=== PATIENT | female | born 1995 | race Hispanic/Latino ===

== ENCOUNTER 2016-12-29 05:06 | Inpatient (IN) ==
[2016-12-29 05:50] LABS: URINE SOURCE VOIDED
[2016-12-29 06:00] LABS: UR AMPHETAMINES QUAL NONE DETECTED (NONE DETECT); UR BARBITUATES QUAL NONE DETECTED (NONE DETECT); UR BENZODIAZEPIN QUAL NONE DETECTED (NONE DETECT); UR CANNABINOIDS QUAL NONE DETECTED (NONE DETECT); UR COCAINE QUAL NONE DETECTED (NONE DETECT); UR MDMA QUAL NONE DETECTED (NONE DETECT); UR METHADONE QUAL NONE DETECTED (NONE DETECT); UR METHAMPHETAMINE QUAL NONE DETECTED (NONE DETECT); UR OPIATES QUAL NONE DETECTED (NONE DETECT); UR OXYCODONE QUAL NONE DETECTED (NONE DETECT); UR PCP QUAL NONE DETECTED (NONE DETECT); UR TCA QUAL NONE DETECTED (NONE DETECT)
[2016-12-29 06:13] LABS: BILIRUBIN URINE NEGATIVE (NEGATIVE); BLOOD URINE 4+ (NEGATIVE); CLARITY SL. CLOUDY (CLEAR); GLUCOSE URINE NEGATIVE (NEGATIVE); LEUKOCYTES URINE 2+ (NEGATIVE); NITRITE URINE NEGATIVE (NEGATIVE); PROTEIN URINE TRACE mg/dL (NEGATIVE); SP GRAVITY URINE 1.005; UROBILINOGEN URINE NORMAL
[2016-12-29 06:20] LABS: COLOR PINK
[2016-12-29] MEDS: LR 1,000 ML IV SCH ×2 (06:24→07:36)
[2016-12-29 06:47] LABS: MANUAL DIFF NEEDED? NO
[2016-12-29 06:58] LABS: BASO% 0.2 % (0.0-0.8); EOS# 0.14 X1000 (0.0-0.7); EOS% 1.3 % (0.0-10.0); HEMATOCRIT 37.9 % (37.0-47.0); IMM GRAN# 0.07 X1000 (0.0-0.04); IMM GRAN% 0.7 % (0.0-0.5); LYMPH# 2.95 X1000 (1.2-3.4); LYMPH% 28.3 % (20.5-51.1); MCH 27.7 PG (27-31); MCHC 34.3 g/dL (33-37); MCV 80.8 FL (81-99); MONO# 0.93 X1000 (0.11-0.59); MONO% 8.9 % (1.7-9.3); MPV 10.1 FL (7.4-10.4); NEUT% 60.6 % (42.2-75.2); PLT 285 X1000 (130-400); RBC 4.69 XMIL (4.2-5.4)
[2016-12-29] MEDS ORDERED: PEPCID PO ONE (06:59)
[2016-12-29] MEDS ORDERED: TYLENOL PO PRN (06:59)
[2016-12-29] MEDS ORDERED: AMPICILLIN 2 GM/NS 2 GM/100 ML IVPB IV ONE (06:59)
[2016-12-29] MEDS ORDERED: PITOCIN 30 UNITS/LR 30 UNITS/500 ML IV.SOLN IV SCH (06:59)
[2016-12-29] MEDS ORDERED: STADOL IV PRN (06:59)
[2016-12-29] MEDS ORDERED: PEPCID IV PRN (06:59)
[2016-12-29] MEDS ORDERED: LR 1,000 ML IV SCH (06:59)
[2016-12-29] MEDS ORDERED: PEPCID PO PRN (06:59)
[2016-12-29] MEDS ORDERED: REGLAN PO ONE (06:59)
[2016-12-29] MEDS ORDERED: KEFZOL 1 GM/D5W 1 GM/50 ML IVPB IV PRN (06:59)
[2016-12-29] MEDS ORDERED: ZOFRAN IV PRN (06:59)
[2016-12-29] MEDS ORDERED: SODIUM CHLORIDE 0.9% INJ SCH (07:00)
[2016-12-29 07:15] LABS: RAPID HIV PRESUMPTIVE NEGATIVE
[2016-12-29] MEDS ORDERED: XYLOCAINE-MPF 1% ONE (07:25)
[2016-12-29] MEDS ORDERED: MINERAL OIL ONE (07:25)
[2016-12-29] MEDS ORDERED: BOOSTRIX VACCINE IM ONE (10:49)
[2016-12-29] MEDS ORDERED: PITOCIN 20 UNITS/LR 20 UNITS/1,000 ML IV.SOLN IV SCH (10:49)
[2016-12-29] MEDS ORDERED: M-M-R II VACCINE SUBQ ONE (10:49)
[2016-12-29] MEDS ORDERED: PITOCIN IM PRN (10:49)
[2016-12-29] MEDS ORDERED: MINERAL OIL PO PRN (10:49)
[2016-12-29] MEDS ORDERED: AMBIEN PO PRN (10:49)
[2016-12-29] MEDS ORDERED: PITOCIN 30 UNITS/LR 30 UNITS/500 ML IV.SOLN IV ONE (10:49)
[2016-12-29] MEDS ORDERED: CYTOTEC PO PRN (10:49)
[2016-12-29] MEDS ORDERED: PERI MEDS (DERMOPLAST/NUPERCAINAL/TUCKS) MISC PRN (10:49)
[2016-12-29] MEDS ORDERED: BENADRYL PO PRN (10:49)
[2016-12-29] MEDS ORDERED: HYDROXYZINE IM PRN (10:49)
[2016-12-29] MEDS ORDERED: HYDROXYZINE PO PRN (10:49)
[2016-12-29] MEDS ORDERED: XYLOCAINE-MPF 1% INJ PRN (10:49)
[2016-12-29] MEDS ORDERED: BENADRYL IV PRN (10:49)
--- NOTE | 2016-12-29 10:53 | HISTORY AND PHYSICAL ---
ADMITTING DIAGNOSES: 1. at term. 2. Vaginal bleeding. 3. No care. 4. Non-Kazakh speaking patient. CONDITION: Stable. HISTORY OF PRESENT ILLNESS: Ms. Henriquez is a 21-year-old 2, para 1, with estimated date of delivery of 01/11/2017 given by somebody, she has had no care. I believe it was [facility] that placed her at 38 and 1. She communicated through interpreters that she started having contractions at approximately 1 a.m. this morning and then had some fluid that turned out to be blood around 3. She came into the hospital where she was examined. She was dilated. No evidence of placenta previa. The infant was vertex. heart tones were reassuring. So, she was admitted and begun on Pitocin. PAST OBSTETRICAL HISTORY: Previous vaginal delivery. PAST MEDICAL HISTORY: No past medical history. PAST SURGICAL HISTORY: No past surgical history. ALLERGIES: No known drug allergies. FAMILY HISTORY: No family history. SOCIAL HISTORY: Negative for tobacco, alcohol, or drug use. PHYSICAL EXAMINATION: VITAL SIGNS: Temperature 97.6 degrees, blood pressure 123/74, weight 144. GENERAL: She is alert and cooperative, in moderate distress. NECK: Supple. LUNGS: Clear. HEART: Regular sinus rhythm. ABDOMEN: Gravid. PELVIC: Cervical exam shows 3 cm. No active bleeding noted. EXTREMITIES: No cyanosis, clubbing, or edema in her extremities. LABORATORY VALUES: White count 10, hemoglobin and hematocrit of 13/37, platelets 285,000. Glucose 85. Urine negative. ROM+negative. Negative toxicology. HIV presumed negative. RPR and rubella are pending. ASSESSMENT: Term , as above. PLAN: Admit for delivery. cc: Kb Gracia MD
[2016-12-29] MEDS ORDERED: AMPICILLIN 1 GM/NS 1 GM/50 ML IVPB IV SCH (11:00)
[2016-12-29] MEDS ORDERED: PITOCIN 20 UNITS/LR 20 UNITS/1,000 ML IV.SOLN ONE (11:08)
--- NOTE | 2016-12-29 11:09 | OPERATIVE NOTE ---
PROCEDURE DATE: 12/29/2016 PRE DELIVERY DIAGNOSES: 1. Intrauterine at term. 2. Active labor. 3. No care. 4. Non-Turkmen speaking patient. POST DELIVERY DIAGNOSES: 1. Intrauterine at term. 2. Active labor. 3. No care. 4. Non-Turkmen speaking patient. PROCEDURE: Vaginal delivery. PHYSICIAN: Dr. Kb Gracia. ANESTHESIA: None. FINDINGS: Viable female , 5 pounds 10 ounces. No complications. Very poor attachment of the cord to the placenta. 3 vessel cord though. The placenta was delivered by fundal pressure, and extraction with a ring forceps. It appeared to be intact. There were no lacerations or tears. All counts correct. ESTIMATED BLOOD LOSS: 100 mL. Ms. Henriquez was admitted, augmented with Pitocin, became complete and began pushing. Soon after crowned, at which point the bed was broken down, and she was prepped and draped. With continued pushing, she delivered a viable female , occiput anterior, over an intact perineum. Once the infant's head delivered, shoulders and rest of the body delivered easily and was placed on mother's abdomen. Cord was doubly clamped and cut and care of infant was taken over by nursery personnel. Cord blood was obtained. Gentle traction on the cord resulted in some tearing at the attachment so vigorous fundal massage was used and approximately 10 minutes after delivery of the baby placenta was delivered intact. It was inspected and then discarded. Inspection of the perineum and the vagina did not reveal any lacerations or foreign material or blood clots on sweep. Counts were correct x2 and expect routine . Estimated blood loss 100 mL. cc: Kb Gracia MD
[2016-12-29] MEDS: NORCO-10 PO PRN (11:11)
[2016-12-29] MEDS: MOTRIN PO PRN ×2 (11:11→20:22)
[2016-12-29 15:02] LABS: RPR NON-REACTIVE (NONREACTIVE)
[2016-12-29 15:03] LABS: RUBELLA SCREEN IMMUNE (IMMUNE)
[2016-12-29] MEDS: PERICOLACE PO SCH (20:22)
[2016-12-30] MEDS: MOTRIN PO PRN ×2 (05:06→14:42)
[2016-12-30 06:11] LABS: MANUAL DIFF NEEDED? NO
[2016-12-30 06:25] LABS: BASO% 0.2 % (0.0-0.8); EOS# 0.17 X1000 (0.0-0.7); EOS% 1.4 % (0.0-10.0); HEMATOCRIT 34.7 % (37.0-47.0); HEMOGLOBIN 11.4 g/dL (12.0-16.0); IMM GRAN# 0.08 X1000 (0.0-0.04); IMM GRAN% 0.7 % (0.0-0.5); LYMPH# 4.47 X1000 (1.2-3.4); LYMPH% 37.2 % (20.5-51.1); MCHC 32.9 g/dL (33-37); MCV 82.2 FL (81-99); MONO# 1.01 X1000 (0.11-0.59); MONO% 8.4 % (1.7-9.3); MPV 10.4 FL (7.4-10.4); NEUT% 52.1 % (42.2-75.2); PLT 266 X1000 (130-400); RBC 4.22 XMIL (4.2-5.4)
[2016-12-30] MEDS: NORCO-5 PO PRN (14:43)
--- NOTE | 2016-12-30 19:10 | PROGRESS NOTE ---
DATE: 12/30/2016 SUBJECTIVE: She is day 1. Ms. Henriquez communicates no complaints. PHYSICAL EXAMINATION: Vital Signs: Temperature 97.4 degrees, blood pressure 117/60, pulse 61, respirations 16. Neck: Supple. Lungs: Clear. Heart: Regular sinus rhythm. Abdomen: Distended. Uterus is firm and nontender. Hemoglobin 11.4. ASSESSMENT: day 1. PLAN: Routine care. Probable discharge in the morning. cc: Kb Gracia MD
[2016-12-30] MEDS: PERICOLACE PO SCH (20:25)
[2016-12-31] MEDS: NORCO-5 PO PRN (00:22)
[2016-12-31] MEDS: MOTRIN PO PRN (00:22)
[2016-12-31] MEDS: NORCO-10 PO PRN (07:21)
[2017-01-01 10:20] LABS: HEPATITIS B SURFACE ANTIGEN SEE COMMENTS
[2017-01-01 10:51] LABS: HIV ANTIBODY SCREEN SEE COMMENTS
== END 2016-12-31 17:30 | disposition home or self-care (01) ==
LOC: P.OPLD 05:06 → P.LD 05:18
PROVIDERS: ADMIT Obstetrics & Gynecology; ATTEND Obstetrics & Gynecology